=== PATIENT | female | born 1990 | race Caucasian/White ===

== ENCOUNTER 2019-06-18 07:58 | Emergency (ER) | payer SELFPAY ==
[~2019-06-18] VITALS: Ht 152.4 cm; Wt 81.6 kg
[~2019-06-18 07:58] MED LIST: ACHD5005 PO; AMLO5TAB4 PO; ASPI-586 PO; DOCU100C37 PO; FERR325T18 PO; IBUP-1773 PO; PREN1TAB71 PO
--- NOTE | 2019-06-18 08:10 | ED Lower Extremity ---
General Chief Complaint: Lower Extremity Stated Complaint: R FOOT PAIN AFTER FALL DOWN STAIRS Source: patient Exam Limitations: no limitations History of Present Illness Date Seen by Provider: Jun 18, 2019 Time Seen by Provider: 08:07 Initial Comments This 29-year-old white female presents after sustaining an inversion injury when she tripped while going down stairs to her right foot last night. She is complaining of pain and swelling over the right foot. She denies loss of sensation or range of motion of the affected extremity. He denies other injury. Denies previous injury to the right foot. Patient describes sharp pain that is moderately severe over the right foot made worse with compression or motion. Allergies and Home Medications Allergies Coded Allergies: No Known Drug Allergies (Unverified , 07/11/16) Home Medications No Active Prescriptions or Reported Meds Patient Home Medication List Home Medication List Reviewed: Yes Review of Systems Constitutional: No chills EENTM: No ear discharge Respiratory: No cough Cardiovascular: No chest pain Gastrointestinal: No abdominal pain, No nausea Genitourinary: no symptoms reported Musculoskeletal: see HPI, joint pain (dorsum of the right foot.) Skin: change in color Psychiatric/Neurological: No Symptoms Reported (dorsum of the right foot) Past Xmgqhin-Eyfwyt-Kfzcvt Hx Past Med/Social Hx: Reviewed Nursing Past Med/Soc Hx Patient Social History Recent Foreign Travel: No Contact w/Someone Who Travel: No Recent Hopitalizations: No Immunizations Up To Date Tetanus Booster (TDap): Less than 5yrs PED Vaccines UTD: No Date of Influenza Vaccine: Jul 25, 2016 Seasonal Allergies Seasonal Allergies: No Past Medical History Reproductive Disorders: No Adverse Reaction/Blood Tranf: No Family Medical History Cardiovascular disease 19 FATHER G8 BROTHER Cervical cancer 19 MOTHER Colon cancer 19 FATHER 19 MOTHER Diabetes mellitus G8 SISTER Hypertension 19 FATHER G8 SISTER G8 BROTHER Physical Exam Vital Signs Vital Signs - First Documented 06/18/19 08:07 Temp 99.0 Pulse 105 Resp 16 B/P (MAP) 144/104 (117) Pulse Ox 95 Capillary Refill : Height, Weight, BMI Height: 5'0.00" Weight: 209lbs. 4.0oz. 94.942415es; 40.9 BMI Method: General Appearance: WD/WN, mild distress HEENT: normal ENT inspection Neck: normal inspection Cardiovascular: regular rate, rhythm Respiratory: no respiratory distress Hips: bilateral hip normal inspection Legs: bilateral leg normal inspection Knees: bilateral knee normal inspection Ankles: bilateral ankle non-tender, bilateral ankle normal inspection, bilateral ankle normal range of motion, bilateral ankle no evidence of injury Feet: left foot non-tender, left foot normal inspection, left foot normal range of motion, left foot no evidence of injury; right foot ecchymosis, right foot pain, right foot soft tissue tenderness, right foot swelling Neurologic/Psychiatric: no motor/sensory deficits, alert Skin: ecchymosis (over the dorsum of the right forefoot) Progress/Results/Core Measures Results/Orders My Orders Orders - ROSANNE GORDON MD Foot, Right, 3 View (06/18/19 08:02) Ct Extremity Lower Right W (06/18/19 08:31) Vital Signs/I&O 06/18/19 08:07 Temp 99.0 Pulse 105 Resp 16 B/P (MAP) 144/104 (117) Pulse Ox 95 Progress Progress Note : Time: 09:54 Progress Note Plain films and CT of the patient's right foot demonstrated a second metatarsal fracture but more importantly a crush injury to the cuneiform. The integrity of the patient's was colt ligaments are significant concern. The patient was placed in a posterior splint and given crutches for nonweightbearing. She was referred to her primary care physician and Dr. Colon (orthopedics). Patient was given Vicodin for pain. She was asked to ice and elevate the right foot above the level of her heart. She was asked call her doctor's office and the orthopod's office in the morning for close follow-up. Departure Impression Primary Impression: Cuneiform fracture, foot Disposition: 01 HOME, SELF-CARE Condition: Improved Departure-Patient Inst. Decision time for Depature: 09:56 Referrals: REBECCA COLON,LOCAL PHYSICIAN (PCP) Primary Care Physician Patient Instructions: Foot Fracture (DC) Add. Discharge Instructions: Close follow-up with Dr. Colon for unstable foot fracture of the cuneiform. No weightbearing. Vicodin for pain. Ice and elevation of the right foot. Return if any problems or questions. All discharge instructions reviewed with patient and/or family. Voiced understanding. Scripts Hydrocodone/Acetaminophen (Vicodin 5-300 mg Tablet) 1 Each Tablet 1-2 EACH PO Q6H PRN for PAIN-MODERATE MDD 10 for 7 Days, #20 TAB Prov: ROSANNE GORDON MD 06/18/19 ROSANNE GORDON MD Jun 18, 2019 08:10
--- NOTE | 2019-06-18 08:41 | Diagnostic Imaging Report ---
EXAMINATION: Right foot INDICATION: Foot injury Three views obtained. There are no prior studies available for comparison. There is no fracture identified with certainty. However, there is slight irregularity of the lateral aspect of the base of the second metatarsal. On the AP view there is also suggestion of mild widening of the Lisfranc joint. Although these findings are not particularly striking, I would recommend that a CT of the foot be performed for a more sensitive evaluation of both the base of second metatarsal and the Lisfranc joint. There is no other fracture or acute bony abnormality noted. The lateral view does suggest generalized soft tissue edema over the dorsum of the foot. IMPRESSION: 1. There is a question of a nondisplaced fracture involving the lateral aspect of the base of the second metatarsal. There may also be slight widening of the Lisfranc joint. CT would be recommended for further evaluation. 2. There is no acute bony abnormality noted otherwise. Dictated by: Dictated on workstation # [id number]
--- NOTE | 2019-06-18 09:32 | Diagnostic Imaging Report ---
PROCEDURE: CT right lower extremity with contrast. TECHNIQUE: Multiple contiguous axial CT images of the right extremity were obtained after intravenous administration of iodinated contrast. Auto Exposure Controls were utilized during the CT exam to meet ALARA standards for radiation dose reduction. INDICATION: Injury The plain film examination performed prior to this study suggest that there is slight widening of the Lisfranc joint. On this exam, there is a severely comminuted fracture of the first cuneiform. I do suspect that the Lisfranc ligament has been injured. If further study is desired, then MRI would be recommended. The sagittal images also show a nondisplaced fracture of the base of the second metatarsal. No other fracture or acute bony abnormality is appreciated. There is generalized soft tissue edema about the fractures of the mid foot. There is no radiopaque foreign body identified. Impression: 1. There is a severely comminuted fracture of the first cuneiform and there is slight widening of the Lisfranc joint. Most likely Lisfranc ligament has been injured. If further study is desired, then MRI would be recommended. There is also a nondisplaced fracture of the base of the second metatarsal. 2. There is no acute bony abnormality identified otherwise. 3. These results were discussed with Dr. Walls in the ER. Dictated by: Dictated on workstation # [id number]
[2019-06-18] MEDS ORDERED: HYDR-3455 PO (09:59)
[2019-06-18 10:20] VITALS: BP 132/90
== END 2019-06-18 10:20 | disposition home or self-care (01) ==
LOC: EDUNIT# 07:58 → ER 07:59
DX: S92.224A Nondisplaced fracture of lateral cuneiform of right foot, initial encounter for closed fracture (principal); Z80.0 Family history of malignant neoplasm of digestive organs; Z80.8 Family history of malignant neoplasm of other organs or systems; Z82.49 Family history of ischemic heart disease and other diseases of the circulatory system; W10.9XXA Fall (on) (from) unspecified stairs and steps, initial encounter
CPT/HCPCS: 29515; 73630; 73701

== ENCOUNTER 2019-06-28 05:37 | Outpatient (CLI) | payer SELFPAY ==
[~2019-06-28] VITALS: Ht 152.4 cm; Wt 81.6 kg
[~2019-06-28 05:37] MED LIST changes: +HYDR-3455 PO
== END 2019-06-28 11:10 ==
LOC: PREOP 05:37
PROVIDERS: ATTEND Podiatrist
DX: Z01.818 Encounter for other preprocedural examination (principal)

== ENCOUNTER 2019-07-05 07:50 | Day surgery (SDC) | payer SELFPAY ==
[~2019-07-05] VITALS: Ht 152.4 cm; Wt 81.6 kg
[2019-07-05] VITALS (12 sets, daily range): BP systolic 111–136; BP diastolic 69–92
[2019-07-05] MEDS ORDERED: ceFAZolin 2 GM/50 ML NS 50 ML IV ONE (08:00)
[2019-07-05] MEDS ORDERED: LACTATED RINGERS 1,000 ML IV PRN (08:00)
[2019-07-05] MEDS ORDERED: LIDOCAINE PF 2% 5 ML (XYLOCAINE) VIAL ONE ×2 (08:59→10:53)
[2019-07-05] MEDS ORDERED: BUPIVACAINE 0.25% 30 ML (SENSORCAINE) VIAL ONE (08:59)
[2019-07-05] MEDS ORDERED: fentaNYL INJECTION 100 MCG/2 ML AMP ONE (09:03)
[2019-07-05] MEDS ORDERED: MIDAZOLAM 2 MG/2 ML (VERSED) VIAL ONE ×2 (09:03→10:53)
[2019-07-05] MEDS ORDERED: BUPIVACAINE 0.5% 30 ML (SENSORCAINE) VIAL ONE (10:20)
[2019-07-05] MEDS ORDERED: proPOfol 200 MG/20 ML (DIPRIVAN) VIAL IV ONE (10:53)
[2019-07-05] MEDS ORDERED: ONDANSETRON 4 MG/2 ML (SDV) Z0FRAN ONE (10:55)
[2019-07-05] MEDS ORDERED: DEXAMETHASONE 10 MG/ML (DECADRON) 1 ML VIAL ONE (10:55)
[2019-07-05] MEDS ORDERED: SEVOFLURANE (ULTANE) 15 ML INHAL SOLN ONE ×3 (10:55→12:16)
[2019-07-05] MEDS ORDERED: ceFAZolin 2 GM/50 ML NS 50 ML ONE (10:57)
--- NOTE | 2019-07-05 11:18 | History & Physical-Surgical ---
HPO-Surgical History of Present Illness Chief Complaint: Right foot pain. Diagnosis/Surgical Indication: Lis Fraric fracture/dislocation right foot Procedure: ORIF Right midfoot vs. Midfoot fusion right foot Date of Surgery: Jul 05, 2019 Weight (Pounds): 180 Weight (Ounces): 0.0 Height (Feet): 5 Height (Inches): 0.00 Allergies and Home Medications Allergies Coded Allergies: No Known Drug Allergies (Unverified , 07/11/16) Home Medications No Active Prescriptions or Reported Meds Patient Home Medication List Home Medication List Reviewed: Yes Past Yqzgdeg-Hbekhw-Mbkjqz Hx Patient Social History Alcohol Use: Rarely Uses Recreational Drug Use: No Smoking Status: Never a Smoker Recent Foreign Travel: No Contact w/other who traveled: No Recent Hopitalizations: No Recent Infectious Disease Expo: No Immunizations Up To Date Tetanus Booster (TDap): Less than 5yrs Pediatric: No Date of Influenza Vaccine: Jul 25, 2016 Seasonal Allergies Seasonal Allergies: No Surgeries Yes Section, Tubal Ligation Respiratory No Cardiovascular No Neurological No Reproductive System Hx Reproductive Disorders: No Genitourinary No Gastrointestinal No Musculoskeletal Yes (right foot fx) Endocrine History of Endocrine Disorders: No Cancer No Psychosocial History of Psychiatric Problem: No Integumentary History of Skin or Integumenta: No Blood Transfusions History of Blood Disorders: No Adverse Reaction to a Blood Tr: No Family Medical History Family Hx: Cardiovascular disease 19 FATHER G8 BROTHER Cervical cancer 19 MOTHER Colon cancer 19 FATHER 19 MOTHER Diabetes mellitus G8 SISTER Hypertension 19 FATHER G8 SISTER G8 BROTHER Exam Vital Signs Vital Signs 07/05/19 08:10 Temp 98.3 Pulse 106 Resp 18 B/P (MAP) 136/91 (106) Pulse Ox 98 O2 Delivery Room Air Capillary Refill : General Appearance: Alert, Oriented X3 Cardiovascular: Regular Rate Extremities: Other (RLE- N/V intact, mild edema noted to the dorsum of the midfoot, pain and instability of the midfoot at the lis franc complex, ROM intact to the digits and ankle, no pain to the ankle, achilles tendon intact) Assessment/Plan Assessment and Plan Lis Franc Fracture/Dislocation RLE -NPO today -Plan for ORIF Right Lis Franc Fracture vs Midfoot Fusion Admission Diagnosis Lis Franc Fracture/Dislocation RLE Admission Status: Other (Outpt Proc) JAY PABON DPDoug Jul 05, 2019 11:18
[2019-07-05] MEDS ORDERED: MEPERIDINE (DEMEROL) INJ 50 MG/ML ONE (12:36)
--- NOTE | 2019-07-05 12:42 | Discharge Inst-Surgical ---
Discharge Inst-Surgical Consults/Follow Up Patient Instructions: Keep Dressing Clean Dry and Intact to the Right Foot. Remain Nonweight Bearing to the RLE with crutches/walker. Call for Follow up appointment in 2 weeks. [phone] JAY PABON DPM Jul 05, 2019 12:42
[2019-07-05] MEDS ORDERED: HYDR-3816 PO (12:44)
[2019-07-05] MEDS ORDERED: MEPERIDINE (DEMEROL) INJ 50 MG/ML IVP ONE (13:00)
[2019-07-05] MEDS ORDERED: morphine INJ 10 MG/ML 1ML (SYR OR VIAL) IVP ONE (13:00)
[2019-07-05] MEDS ORDERED: ONDANSETRON 4 MG/2 ML (SDV) Z0FRAN IVP PRN (13:00)
[2019-07-05] MEDS ORDERED: HYDROmorphone 2 MG/ML VIAL (DILAUDID) IV ONE (13:00)
--- NOTE | 2019-07-05 14:02 | Diagnostic Imaging Report ---
INDICATION: Foot fusion. COMPARISON: 06/18/2019. TOTAL FLUOROSCOPY TIME: 83 seconds. TOTAL NUMBER OF FLUOROSCOPIC IMAGES OBTAINED: 2. FINDINGS: Two intraoperative image intensifier views of the right foot were obtained. Multiple surgical screws are seen within the medial foot traversing the first and second metatarsals as well as the medial and middle cuneiforms. Please note, interpreting radiologist was not present during the procedure. IMPRESSION: 1. Fluoroscopic guidance provided during foot surgery. Dictated by: Dictated on workstation # [id number]
--- NOTE | 2019-07-05 14:02 | Anesthesia-General Post-Op ---
General Patient Condition Mental Status/LOC: Same as Preop Cardiovascular: Satisfactory Nausea/Vomiting: Absent Respiratory: Satisfactory Pain: Controlled Complications: Absent Post Op Complications Complications None Follow Up Care/Instructions Patient Instructions None needed. Anesthesia/Patient Condition Patient Condition Patient is doing well, no complaints, stable vital signs, no apparent adverse anesthesia problems. No complications reported per nursing. ANA LUISA JONES CRNA Jul 05, 2019 14:01
[2019-07-05] MEDS ORDERED: HYDROcodone/APAP 7.5 MG/325 MG (LORTAB, LORCET PLUS) TABLET PO ONE ×2 (14:15→14:30)
--- NOTE | 2019-07-17 04:58 | OPERATIVE REPORT ---
DATE OF SERVICE: 07/05/2019 SURGEON: Torey Pabon DPM BUN ICER: None. PREOPERATIVE DIAGNOSIS: Lisfranc fracture dislocation of the right foot. POSTOPERATIVE DIAGNOSIS: Lisfranc fracture dislocation of the right foot. PROCEDURE PERFORMED: Open reduction and internal fixation of the Lisfranc joint, right foot. ANESTHESIA: General anesthesia. HEMOSTASIS: Pneumatic thigh tourniquet 300 mmHg. ESTIMATED BLOOD LOSS: Minimal. MATERIALS USED: Meaghan 3.5 mm screws, 3-0 Vicryl, 3-0 nylon. INTRAOPERATIVE INJECTABLES: 20 mL of 0.5% Marcaine plain. COMPLICATIONS: None. INDICATIONS FOR THE PROCEDURE: The patient is a 29-year-old female with history of a Lisfranc injury to her right foot. Procedure has been made aware. The risks and benefits of the procedure as well as alternatives to undergoing a signed consent prior to being taken back to the OR. DESCRIPTION OF PROCEDURE: Under mild sedation, the patient was brought into the OR and placed on the operating table in supine position. Following administration of general anesthesia, pneumatic thigh tourniquet was placed to the right lower extremity. The right lower extremity was scrubbed, prepped and draped in aseptic manner. Proper timeout was performed. Right lower extremity was identified as the surgical site. Next, stress abduction of the forefoot was performed under fluoroscopy to the right foot. It was noted that with stress abduction, there was diastasis seen of the first metatarsal cuneiform joint as well as the second metatarsal cuneiform joint and gapping noted at the Lisfranc ligament between the base of the first and the intercuneiform joints. Thus, the indication for syndesmotic stabilization was necessary. It was noted that the fourth and fifth metatarsal cuboid joint appeared stable as well as the third metatarsal cuneiform joint was stable at this time with no widening seen. Next, an approximately 6 cm incision was made just lateral to the extensor hallucis longus tendon over the metatarsal cuneiform joint. The incision was deepened down to subcutaneous tissues with care being taken to avoid all major neurovascular structures. All bleeders were cauterized and ligated as necessary. The incision was deepened down to the level of bone, capsular tissues with care being taken to avoid all major neurovascular structures. All bleeders were cauterized and ligated as necessary. It was noted that there was hemarthrosis noted in the first met and second metatarsal cuneiform joints as well as a fracture of the base of the second metatarsal and some intercuneiform instability at the medial cuneiform and intermediate cuneiform joints. Dissection was then dissected further laterally and there was no hemarthrosis or instability noted of the third metatarsal cuneiform joint. The instability was mild to the first and second metatarsal cuneiform joints, thus the need for open reduction internal fixation was deemed necessary versus fusion of those joints. The joints were then reduced and using fracture clamps and temporarily fixated with guide pins. Once the joints were appropriately reduced, the joints were evaluated under fluoroscopy. Next, 3.5 mm screws were then placed across the first metatarsal cuneiform joint. Two screws were placed across the joint. There was excellent compression and stable fixation across the first metatarsal cuneiform joint. A third screw was then placed across the second metatarsal cuneiform to hold the joint in place and then the Lisfranc ligament was also reduced with a fracture clamp and temporally fixated with a K-wire and a fourth screw was then placed from the medial aspect of the cuneiform into the base of the second metatarsal. There was stable rigid internal fixation across the Lisfranc complex. The foot was put through a range of motion and was noted to be stable with no significant diastasis that was seen. The wound was then flushed with copious amounts of sterile saline. The deep tissues approximated and closed with 3-0 Vicryl, subcutaneous tissues approximated with 3-0 Vicryl and the skin was reapproximated with wound edges well everted using 3-0 nylon and 20 mL 0.5% Marcaine plain were injected in the foot. The foot was then dressed with dry sterile dressing consisting of 4 x 4's, cast padding and Yosi wrap followed by posterior splint and Yosi wrap. The patient tolerated the procedure and anesthesia well. She was transferred from OR to recovery with vital signs stable and neurovascular status intact to the right lower extremity. Job ID: [id number] DocumentID: [id number] Dictated Date: 07/16/2019 22:13:26 Direct Support Specialist Date: 07/17/2019 04:57:12 Dictated By: TOREY PABON DPM
== END 2019-07-05 15:25 | disposition home or self-care (01) ==
LOC: SDC 07:50
PROVIDERS: ATTEND Podiatrist
DX: S93.321A Subluxation of tarsometatarsal joint of right foot, initial encounter (principal); M25.074 Hemarthrosis, right foot; E66.01 Morbid (severe) obesity due to excess calories; Z68.35 Body mass index [BMI] 35.0-35.9, adult; Z98.51 Tubal ligation status; Z79.891 Long term (current) use of opiate analgesic; Z82.49 Family history of ischemic heart disease and other diseases of the circulatory system; Z83.3 Family history of diabetes mellitus; Z80.49 Family history of malignant neoplasm of other genital organs; Z80.0 Family history of malignant neoplasm of digestive organs
CPT/HCPCS: 84703; 87081

== ENCOUNTER → 2022-04-20 | Outpatient (CLI) | payer BC ==
[~2022-04-20] MED LIST changes: +HYDR-34 PO
--- NOTE | 2022-04-20 17:59 | Diagnostic Imaging Report ---
PROCEDURE: US Thyroid. TECHNIQUE: Multiple real-time grayscale images were obtained of the thyroid in various projections. INDICATION: Enlarged thyroid. COMPARISON: None. FINDINGS: Both thyroid lobes demonstrate smooth and homogenous background echotexture. Color flow Doppler demonstrates normal and symmetric vascularity bilaterally. The right lobe measures 5.6 cm in length , 1.3 cm AP, and 1.8 cm transverse. The left lobe measures 5.2 cm in length , 1.2 cm AP, and 1.7 cm transverse. The isthmus measures 0.2 cm. Scattered small hypoechoic nodules are seen in both lobes of the thyroid. The largest in the right lobe of the thyroid measures 0.5 cm and the largest on the left measures 0.3 cm. Impression: 1. Multinodular goiter. The nodules have a benign appearance and do not meet significance based on size criteria or imaging characteristics. No dedicated followup is recommended regarding any of the nodules. Recommend correlation with TSH levels. Dictated by: Dictated on workstation # [id number]
== END ==
LOC: RAD 12:00
PROVIDERS: ATTEND Nurse Practitioner Family
DX: E04.2 Nontoxic multinodular goiter (principal)
CPT/HCPCS: 76536